=== PATIENT | male | born 1985 | race Two or more races ===

== ENCOUNTER 2018-10-02 04:55 | Emergency (ER) | payer OTHER ==
[~2018-10-02] VITALS: Ht 188 cm; Wt 149.7 kg
== END 2018-10-02 06:16 | disposition home or self-care (01) ==
LOC: ER 04:55
DX: K29.70 Gastritis, unspecified, without bleeding (principal)

== ENCOUNTER 2020-04-11 06:29 | Emergency (ER) | payer OTHER ==
[~2020-04-11] VITALS: Ht 185.4 cm; Wt 136.1 kg
== END 2020-04-11 09:20 | disposition home or self-care (01) ==
LOC: ER 06:29
DX: R41.0 Disorientation, unspecified (principal); F14.129 Cocaine abuse with intoxication, unspecified; F10.988 Alcohol use, unspecified with other alcohol-induced disorder